=== PATIENT | male | born 1950 | race Caucasian/White ===

== ENCOUNTER 2018-04-26 10:49 | Emergency (ER) | payer OTHER, SELFPAY ==
[2018-04-26 10:50] VITALS: BP 122/63; PULSE 59; RESP 21; TEMP 36.5; O2SAT 100; BMI 24.4
--- NOTE | 2018-04-26 10:56 | EKG12_ITS ---
Test Reason : HYPOTENSION Blood Pressure : / mmHG Vent. Rate : 064 BPM Atrial Rate : 064 BPM P-R Int : 150 ms QRS Dur : 080 ms QT Int : 398 ms P-R-T Axes : 058 067 056 degrees QTc Int : 410 ms Normal sinus rhythm with sinus arrhythmia Normal ECG Confirmed by CARMITA LUNDBERG, SHILPA ([id number]), movie editor MYCHAL IZQUIERDO ([id number]) on 05/02/2018 9:58:09 AM Referred By: SUZANNE Confirmed By:SHILPA VIZCARRA MD
--- NOTE | 2018-04-26 10:57 | ED.VISSUMM ---
- ER Visit Summary Date of Service: 04/26/18 Chief Complaint: Low blood pressure and heart rate History of Present Illness: The patient is a 67 M who presents to the emergency department from outpatient surgery center. The patient had cataract surgery today. He states he had not eaten anything this morning. His eyes were dilated and he was given Versed and a twilight sedation. When the procedure was finished, the patient's heart rate dropped into the 40s. He also had low blood pressure. He states that he did feel mildly dizzy, but now he states that he feels back to normal. He is on no antihypertensives. His only medical history is of asthma. He denies any chest pain or trouble breathing. He denies any other systemic symptoms. Physical Examination: Vital signs reviewed General: Well-nourished, well-developed Head: Normocephalic, atraumatic Eyes: Pupils equal and reactive, extraocular muscles intact Neck, supple, no lymphadenopathy Heart: Regular rate and rhythm Respiratory: No distress, clear bilaterally Abdomen: Soft, nontender, nondistended, no peritoneal signs Back: Nontender Extremities: Nontender, no edema, no cords Skin: Normal color no rash Neuro: Alert and oriented, no focal or lateralizing deficits Test Results: [] Emergency Department Course and Treatment: The patient was hypotensive and bradycardic at the surgery center. My suspicion is that this was a vagal reaction or reaction to his medication. On arrival, he has normal blood pressure and a normal heart rate. EKG shows sinus rhythm without ischemic change. There is a normal axis and intervals. Patient was given fluids labs were obtained. These were unremarkable. He was observed for 2 hours and had no recurrence of his symptoms. He ambulated through the emergency department without symptoms. I do feel that this is likely secondary to his surgical procedure. I do not see a dangerous process. He had no chest pain or shortness of breath. At this time, I do feel it is safe for outpatient therapy. He was counseled on concerning symptoms and reasons to return. He will be discharged home. Treatment Plan: [] Disposition: Discharge Impression: 1. Medication effect This note was generated with [employer] software. It may contain incorrect words, spelling, and punctuation that were not noted in review of the chart prior to signing ED Disposition - Plan for ED Patient: Disposition: Home or Assisted Living Instructions: ED Hypotension Orthostatic Referrals: Kavita Rivas MD [Primary Care Provider] -
--- NOTE | 2018-04-26 11:01 | NURSING ---
NO OLD EKGS
[2018-04-26 11:13] LABS: Absolute Lymphocyte Count 1.23 X10^3/ul (0.83-4.51); Absolute Neutrophil Count 4.3 X10^3/uL (2.0-7.7); Basophil# 0.04 X10^3/uL; Basophil% 0.6 % (0-1); Eosinophil# 0.22 X10^3/uL; Eosinophils% 3.4 % (0-5); Hematocrit 41.6 % (40-54); Hemoglobin 14.6 g/dl (13.0-16.5); Lymphocyte # 1.23 X10^3/ul (4.0); Lymphocyte % 19.2 % (19-41); Mean Corp Hgb Conc 35.1 g/gl (32-36); Mean Corpuscular Hgb 29.5 pg (27.0-32.0); Mean Platelet Vol. 9.5 fl (6.2-12.0); Monocyte# 0.61 X10^3/uL; Monocyte% 9.5 % (0-10); Neutrophil # 4.27 X10^3/uL (2.7-7.7); Neutrophil % 66.7 % (47-70); Platelet Count 141 K/mm3 (150-450); RBC Distribution Width CV 13.6 % (11.6-14.6); RBC Distribution Width SD 41.2 fl (35.1-43.9); Red Blood Count 4.95 M/mm3 (4.6-6.2); White Blood Count 6.4 K/mm3 (4.4-11.0)
[2018-04-26 11:14] LABS: POSITIVE COUNT NO; POSITIVE DIFFERENTIAL NO; POSITIVE MORPHOLOGY NO
[2018-04-26 11:25] LABS: Anion Gap 3 (5-15); BUN 16 mg/dL (7-18); BUN/Creat Ratio 17.1 RATIO (10-20); Calcium,Total 8.6 mg/dL (8.5-10.1); Chloride 111 mmol/L (98-107); Creatinine, Serum 0.94 mg/dL (0.70-1.30); EST Glomerular Filtration Rate 86 mL/min (>60); Est Glom Filt Rate - Afr Amer 104 mL/min (>60); Estimated Creatinine Clearance 73.25 ml/min; Glucose 102 mg/dL (74-106); Potassium 4.8 mmol/L (3.5-5.1); Sodium Level 141 mmol/L (136-145)
[2018-04-26] MEDS: 0.9% Normal Saline 1,000 ML 1000 ML IV (11:50)
[2018-04-26 12:49] VITALS: BP 131/70; PULSE 81; RESP 18; O2SAT 98
== END 2018-04-26 13:17 | disposition home or self-care (01) ==
PROVIDERS: Emergency Provider Emergency Medicine; Family Provider Family Medicine; PCP Family Medicine
DX: I95.2 Hypotension due to drugs (principal); R00.1 Bradycardia, unspecified; T42.4X5A Adverse effect of benzodiazepines, initial encounter; Y92.530 Ambulatory surgery center as the place of occurrence of the external cause; J45.909 Unspecified asthma, uncomplicated
CPT/HCPCS: 80048; 85025; 93005; 96360; 99285; J7030; A4216

== ENCOUNTER → 2018-11-09 12:39 | Outpatient (CLI) | payer OTHER, SELFPAY ==
--- NOTE | 2018-11-09 12:44 | RAD_ITS ---
STUDY: SWALLOWING STUDY REASON FOR EXAM: Male, 68 years old. Dysphagia TECHNIQUE: The examination was performed with Speech Pathology in attendance. Under fluoroscopic observation, the patient ingested thin barium, thick barium, barium pudding, and barium coated cracker. FLUOROSCOPY TIME: 2:01 minutes/seconds RADIOLOGIST INVOLVEMENT: Radiologist was present and providing direct supervision. COMPARISON: None. FINDINGS: The following was observed during swallowing of the various mixtures of barium: Thin Barium: There was no evidence of aspiration or laryngeal penetration. Thick Barium: There was no evidence of aspiration or laryngeal penetration. Barium Pudding: There was no evidence of aspiration or laryngeal penetration. Barium Coated Cracker: There was no evidence of aspiration or laryngeal penetration, but there is delay in completion of oropharyngeal transfer. RAD/Swallowing Function w/Video IMPRESSION: Delay in completion of the oropharyngeal transfer for the barium coated cracker. Otherwise normal tailored barium swallow study. No evidence of increased risk for aspiration. The swallow study findings were discussed with the patient by the speech pathologist at the conclusion of the examination. Please see speech pathology report for more information and recommendations. Electronically Signed: Deuce Colby MD at 8:17 EDT Tel [phone], Service support ,
--- NOTE | 2018-11-09 13:42 | SP.MBSS_ITS ---
PRIMARY / SECONDARY DIAGNOSIS: dysphagia (R13.10) REFERRING PHYSICIAN: Dr. Kavita Rivas CURRENT DIET: Regular Textures/Thin Liquids DENTITION: Natural Teeth MENTAL STATUS: WFL RESPIRATORY STATUS: O2 via room air PREVIOUS MODIFIED BARIUM SWALLOW STUDY: N/A REASON FOR REFERRAL: Difficulty chewing dry food such as meat and breads MEDICAL HISTORY: History of asthma, otherwise no remarkable medical history available in patients chart. STUDY FINDINGS: Patient participated in a Modified Barium Swallow (MBS) study on 11/09/2018. Dr. Colby was the radiologist present for this evaluation. This study was recorded in the lateral view and images were sent to PACs for storage. The following consistencies were presented to this patient for analysis of oropharyngeal swallow function: thin liquid, nectar thick liquid, pudding, and a regular textured, Zaria Doone cookie. Results of the MBS are as follows: PENETRATION / ASPIRATION SCALE (SAWYER): 1 = does not enter airway 2 = enters airway/above vocal folds/ejected 3 = enters airway/above vocal folds/not ejected 4 = enters airway/contacts vocal folds/ejected 5 = enters airway/contacts vocal folds/not ejected 6 = enters airway/below vocal folds/ejected 7 = enters airway/below vocal folds/not ejected despite effort 8 = enters airway/below vocal folds/no effort PENETRATION / ASPIRATION SCALE (SCORE): 1) Thin liquid via teaspoon: 1 2) Thin liquid via teaspoon: 1 3) Thin liquid via small single sip from cup: 1 4) Thin liquid via large single sip from cup: image not captured due to technical error 5) Thin liquid via sequential sips from cup: 2 *trace penetration that was ejected on sequential swallow 6) New Site thick liquid via single sip from cup: 1 7) Puddin *three swallows taken to clear 8) Cookie: 1 *residuals requiring double swallow for each trial of cookie 9) Cookie: 1 10) Thin liquid via sequential sips from straw: 1 IMPRESSION: mild oropharyngeal dysphagia (R13.12) ORAL PHASE CHARACTERIZED BY: LABIAL SEAL: no labial escape TONGUE CONTROL DURING BOLUS MANIPULATION: cohesive bolus between tongue to palatal seal BOLUS PREPARATION / MASTICATION: slow prolonged chewing/mashing with complete recollection BOLUS TRANSPORT / LINGUAL MOTION: brisk tongue motion ORAL RESIDUE: residue collection on oral structures PHARYNGEAL PHASE CHARACTERIZED BY: INITIATION OF PHARYNGEAL SWALLOW: bolus head in valleculae at first hyoid excursion with solid textures ( *bolus head at posterior angle of ramus at first hyoid excursion with thin liquids) SOFT PALATE ELEVATION: no bolus between soft palate and pharyngeal wall LARYNGEAL ELEVATION: complete superior movement of thyroid cartilage with complete approximation of arytenoids cartilage to epiglottic petiole ANTERIOR HYOID EXCURSION: partial anterior movement EPIGLOTTIC MOVEMENT: complete epiglottic inversion LARYNGEAL VESTIBULE CLOSURE AT HEIGHT OF SWALLOW: complete laryngeal vestibule closure with no air/contrast in laryngeal vestibule PHARYNGEAL STRIPPING WAVE: pharyngeal stripping wave present / complete PHARYNGOESOPHAGEAL SEGMENT OPENING: partial distension and partial duration; partial obstruction of flow TONGUE BASE RETRACTION: narrow column of contrast between tongue base and posterior pharyngeal wall PHARYNGEAL RESIDUE: collection of residue within or on pharyngeal structures ESOPHAGEAL PHASE CHARACTERIZED BY: ESOPHAGEAL BOLUS CLEARANCE IN THE UPRIGHT POSITION: could not view INTERPRETATION OF RESULTS: Patient presents with mild oropharyngeal dysphagia likely secondary to chronic dry mouth making chewing and oral clearance upon initial swallow difficult. Oral phase primarily marked by slowed mastication (chewing) with Zaria Doone shortbread cookie with moderate oral residue following initial swallow. Residue spilled to vallecula before being cued to take a double swallow with complete clearance. Given this presentation, pt is at high risk for choking/aspiration of solid textures with build up of residue unless cleared prior to taking another bite. Pharyngeal phase primarily marked by trace pharyngeal residue with solid textures including above PES. Diminished hyoid excursion noted although adequate appearing laryngeal elevation and laryngeal vestibule closure/pressure. No aspiration of thin or nectar thick liquids present. Trace penetration with thin liquids on sequential swallows that was ejected. RECOMMENDATIONS: DIET TEXTURE RECOMMENDATIONS: Will recommend a mechanical soft textured, thin liquid diet. COMPENSATORY STRATEGIES RECOMMENDED: Will recommend decreased bolus size, slow rate of intake, double swallow with every bite, alternate bites with sips, and seated upright at 90 degrees during PO intake. Results and recommendations were discussed with the patient immediately following MBS completion. Patient able to comprehend and express recommended intake precautions and strategies detailed above with sufficient detail to suggest high likelihood of compliance. Provided brief overview of signs and symptoms of aspiration, with recommendations for the patient to further discuss symptoms with PCP. No further skilled speech-language services warranted at this time targeting dysphagia. IMAGE COUNT: [id number] Mary Ann Vaughn M.A., [facility] Speech Language Pathologist [facility] [address] [place] [address] [email or web address] [phone]
== END ==
PROVIDERS: Family Provider Family Medicine; PCP Family Medicine; Referring Provider Family Medicine; Visit Provider Family Medicine
DX: R13.10 Dysphagia, unspecified (principal)
CPT/HCPCS: 74230; 92611

== ENCOUNTER → 2019-05-16 10:49 | Outpatient (CLI) | payer OTHER, SELFPAY ==
[2019-05-16 12:33] LABS: Cholesterol 153 mg/dL (200); High Density Lipoprotein 36 mg/dL; PSA,Total - Annual Screen 1.83 ng/mL (0.00-4.00); Triglycerides 123 mg/dL; Very Low Density Lipoprotein 25 mg/dL (5-40)
== END ==
PROVIDERS: PCP Family Medicine; Referring Provider Family Medicine; Visit Provider Family Medicine
DX: Z00.00 Encounter for general adult medical examination without abnormal findings (principal)
CPT/HCPCS: 36415; 80061; 84153; G0103

== ENCOUNTER 2019-05-31 07:43 | Day surgery (SDC) | payer OTHER, SELFPAY ==
[2019-05-22 08:01] VITALS: BMI 24.4
--- NOTE | 2019-05-31 07:48 | EKG12_ITS ---
Test Reason : PRE OP Blood Pressure : / mmHG Vent. Rate : 056 BPM Atrial Rate : 056 BPM P-R Int : 150 ms QRS Dur : 092 ms QT Int : 414 ms P-R-T Axes : 063 067 063 degrees QTc Int : 399 ms Sinus bradycardia Otherwise normal ECG When compared with ECG of 26-APR-2018 11:01, No significant change was found Confirmed by FATOU RESENDEZ ([id number]), image editor SUSI HOLBROOK ([id number]) on 06/01/2019 7:25:52 AM Referred By: Fatou Damian Confirmed By:FATOU RESENDEZ
[2019-05-31 08:07] VITALS: BP 148/61; PULSE 59; RESP 16; TEMP 35.9; O2SAT 99; BMI 24.0
[2019-05-31] MEDS: Lactated Ringers 1,000 ML 100 ML IV (08:13)
[2019-05-31] MEDS: Cefazolin 2 GM in 0.9% Normal Saline 100 ML IV (10:36)
--- NOTE | 2019-05-31 10:45 | HP.PCM_ITS ---
History and Physical Date of Admission: 05/31/19 [facility] [address] [place], [place] [id number] OFFICE VISIT Date of Service: 05/22/19 MR#: [id number] Acct: [id number] Name: PRIMO IZQUIERDO Rep #: [id number] : 1950 Provider: Yuval escoto MD Age/Sex: 68/M Location: [facility] Status: Signed Intake Vital Signs 05/22/19 BMI 24.4 05/22/19 Height 5 ft 8 in 05/22/19 Weight: 155 lb 05/22/19 BMI 23.6 05/22/19 BP 138/75 H 05/22/19 Blood Pressure Location Rt brachial 05/22/19 Position Sitting 05/22/19 Respiration 16 Intake Visit Reasons: Hernia Online Merchandising Coordinator Required: No Is patient in pain?: No Allergies Sulfa (Sulfonamide Antibiotics) Adverse Reaction (Verified 05/22/19 08:01) Upset Stomach sulfamethoxazole [From Bactrim] Adverse Reaction (Verified 05/22/19 08:01) Upset Stomach trimethoprim [From Bactrim] Adverse Reaction (Verified 05/22/19 08:01) Upset Stomach Medications Albuterol IH (ProAir) [Proair Hfa (SP)Vent Pts] 2 puff INHALATION Q4H PRN PRN 04/26/18 [History Confirmed 04/26/18] Budesonide [Pulmicort] 0.25 mg IH DAILY 04/26/18 [History Confirmed 04/26/18] Fluticasone Propionate [Flonase Allergy Relief] 9.9 ml NS DAILY 04/26/18 [History Confirmed 04/26/18] Guaifenesin [Mucus Relief Chest] 400 mg PO DAILY 04/26/18 [History Confirmed 04/26/18] Ipratropium [Atrovent] 0.5 mg INHALATION DAILY 04/26/18 [History Confirmed 04/26/18] mometasone 100 mcg/actuation HFA aerosol inhaler 1 puff INHALATION BID 05/22/19 [History Confirmed 05/22/19] PFSH Medical History Asthma (Acute) GERD (gastroesophageal reflux disease) (Acute) Surgical History S/P cataract extraction (Acute) Family History Father Asthma Social History (Updated 05/22/19 @ 08:[address] Yuval Damian MD) Smoking Status: Never smoker alcohol intake: never HPI HPI HPI: PRIMO IZQUIERDO, is a 68 M who presents to the office today for HPI HPI HPI: PRIMO IZQUIERDO, is a 68 M who presents to the office today for Evaluation of a right inguinal hernia. Patient states about 6 months ago he was lifting up a pallet at his home above his chest area when he felt a pain in his right groin area he developed a bulge in that area approximately a week after that happened. The bulge is been persistent gradually increasing in size. He has had no change in his bowel or bladder habits. Was seen by his primary care physician diagnosed him with a right inguinal hernia and presents him today for evaluation and treatment. ROS General General: Yes fatigue; no weight change, appetite, colon cancer, breast cancer or weakness HEENT HEENT: Yes difficulty swallowing and eye surgery; no eye injury, swollen glands or hoarseness Endo Endocrine: No thyroid disease, diabetes mellitus, thyroid cancer, Hair loss, heat intolerance or cold intolerance Skin Skin: No rash or changing moles Breast Breast: No left breast lump, right breast lump, nipple discharge, breast pain, abnormal mammogram, abnormal US or breast enlargement Musc Musculoskeletal: No back problems, arthritis, rheumatoid arthritis, gout or joint pain Cardio Cardiovascular: No murmur, pacemaker, heart disease, atrial fibrillation, high blood pressure, heart attack, heart stent, palpitations, shortness of breat with exertion or chest pain Psych Psychiatric: No depression, anxiety or hearing voices Resp Respiratory: Yes shortness of breath, No sleep apnea, Yes cough, No COPD, Yes asthma, No emphysema, No wheezing Gastro Gastrointestinal: No abdominal pain, No nausea or vomiting, No diarrhea, No constipation, No blood in stool, No acid reflux, No hemorrhoids, No ulcers, No gallbladder problem, No black,tarry stools Jd Hematologic: No blood thinners, No blood disorders, No bleeding, No anemia, No blood clots Neuro Neurologic: No system reviewed and no additional complaints, except as docu, No as per HPI, No abnormal walking, No abnormal hearing, No abnormal movements, No abnormal speech, No behavioral changes, No burning sensations, No confusion, No seizure-like activity, No unsteadiness, No dizziness, No localized weakness, No frequent falls, No headache(s), No lack of coordination, No loss of vision, No memory loss, No numbness, No other visual disturbances, No radiating pain, No restless legs, No sensory deficit, No fainting, No tingling, No tremor(s), No weakness, No other Exam Const General: no acute distress, well developed, well hydrated Orientation: oriented to person, oriented to place, oriented to time [facility] Head: normocephalic, atraumatic Ears: external ears normal Mouth: moist mucous membranes Eyes Sclera: sclerae normal Pupils: normal by confrontation Neck Neck: no lymphadenopathy noted Neck mass: No Thyroid: thyroid normal, symmetrical Chest Chest palpation & inspection: normal inspection of the chest Breast Palpation: No nipple discharge Resp Effort & Inspection: normal respiratory effort Auscultation: clear to auscultation bilaterally Percussion: percussion normal Cardio Rate: regular rate Rhythm: regular rhythm Heart Sounds: no murmurs GI Palpation: soft, no hepatosplenomegaly, no masses, tender Rectal Exam: other Other: Reducible right inguinal hernia is palpated. No hernia on the left side is identified. Rectal exam deferred. Extrem General: normal to inspection, no clubbing, cyanosis or edema Assessment & Plan 1. Hernia K46.9 2. Right inguinal hernia K40.90 Plan My plan is to perform a Laparoscopic right inguinal hernia repair with mesh. The planned surgical procedure was discussed extensively with the patient. The risks, benefits, anticipated outcomes and possible complication were mentioned. The patient understands that all hernia repair surgery has a chance of recurrence and/or chronic post-operative pain. My staff has also explained the procedure in understandable terms and the patient was given the option to take printed material concerning the planned procedure. The patient had the opportunity to ask questions concerning the planned procedure. The patient freely consents to the planned procedure. Coding Level of Care Code Off vis,new,level 3 Diagnoses Hernia K46.9 Right inguinal hernia K40.90 05/22/19 0820 <Electronically signed by Yuval conde MD> Date _ Yuval Horton Signature: Date (if applicable) CC: Kavita Rivas MD ~ I have re-examined the patient. There are no clinical changes since date of e boyd.
--- NOTE | 2019-05-31 10:47 | PCM.OPRPT ---
Problem List (1) Right inguinal hernia Status: Acute Report of Operation Date of Procedure: 05/31/19 Pre-Operative Diagnosis: Right inguinal hernia Post-Operative Diagnosis: Same Surgery/Procedure Performed:: Laparoscopic right inguinal hernia repair Type of Anesthesia:: General Anesthesiologist: Hermes Mcallister Estimated Blood Loss (mL): < 25 cc Fluids Replaced: 1000 cc LR Description of Procedure: Patient was brought into the operating room. Placed in the supine position. Under excellent general trach intubation the abdomen was sterilely prepped and draped in usual fashion. Local was injected umbilically. Incision was made. Dissection was carried down to the fascia. The fascia is grasped with a Dupont. Varies needle placed inside the abdomen. The abdomen was insufflated 15 torr. A 10/12 trocar was placed difficulty. It was flank by 2 #5 trochars both placed under direct visualization. Patient was placed in the head down rotated to the left. Scored the peritoneum on the right. I dissected down to Avinash's ligament. I dissected towards the indirect inguinal hernia and dissected free from the cord and vessel structures. I dissected further laterally. I fashioned a medium 3D max mesh into the wound. I tacked it with a pro-tacker to Avinash's ligament I tacked it superiorly and laterally with sparing tacks. Cover the defect completely. I reperitonealized area with a pro-tacker covering the mesh completely. I inspected the left side no hernias were identified. Remove the trochars under direct visualization good mistakes was noted. Closed the fascia the umbilical port with a [id number] stitch of 0 Vicryl. Skin incisions were closed subcuticular stitches of 4-0 Monocryl. Under direct visualization I did do an ileal inguinal nerve block on the right side. - Admit VTE Documentation VTE Present on Admission: No VTE Mechan Device Prophylaxis: SCD's VTE Pharm Prophylaxis ordered?: No Reason prophylaxis not ordered:: Treatment Not Indicated
--- NOTE | 2019-05-31 10:48 | PCM.DC.HER ---
Discharge Diet: Light diet - advance as tolerated Discharge Activity: Return to Normal Activity, May Drive - when you are no longer taking narcotic pain medications., May Shower - with the bandage in place 1-2 days after surgery. Lifting Restrictions: 20 pounds for 8 weeks. Additional Activity Instructions:: Climbing stairs is fine, walking is encouraged. Sitting in bed may be uncomfortable. Sitting up using your lateral muscles (sitting up sideways) is usually more comfortable. Do not drive, work heavy equipment of sign legal documents for 24 hours. If your hernia repair was an ingunial repair, you may have scrotal swelling, an ice pack and/or athletic support can provide more comfort. Pain medications may cause nausea, you should typically eat light foods as you take your pain medications. Pain medications may also cause constipation. If you have difficulty with this, discuss with your doctor. Call your doctor if your incision/area has: Continuous Slow Oozing, Sudden Increased Bleeding, Increased Pain/ Swelling, Increased Redness, Foul Smelling Discharge Call your doctor if you observe: Fever of 101 or Higher Suture Line Care: Avoid Pulling/Pushing, Avoid Pinching/Bending Additional Dressing/Incision Instructions:: Leave the operative bandage on for 2-3 days. When you remove the bandage, leave the steri-strips on place until your follow up appointment or they fall off. Allergies/Adverse Reactions: Allergies Sulfa (Sulfonamide Antibiotics) Adverse Reaction (Verified 05/31/19 08:03) Upset Stomach sulfamethoxazole [From Bactrim] Adverse Reaction (Verified 05/31/19 08:03) Upset Stomach trimethoprim [From Bactrim] Adverse Reaction (Verified 05/31/19 08:03) Upset Stomach Medications to take at Discharge Budesonide [Pulmicort] 0.25 mg IH DAILY 04/26/18 Fluticasone Propionate [Flonase Allergy Relief] 9.9 ml NS DAILY 04/26/18 Guaifenesin [Mucus Relief Chest] 400 mg PO DAILY 04/26/18 Ipratropium [Atrovent] 0.5 mg INHALATION DAILY 04/26/18 Albuterol IH (ProAir) [Proair Hfa (SP)Vent Pts] 1 - 2 puff INHALATION Q6H PRN PRN 05/26/19 Famotidine [Acid Controller] 20 mg PO PRN PRN 05/26/19 Mometasone Furoate [Asmanex 220 mcg Twisthaler] 220 mcg INHALATION BID 05/26/19 Oxycodone HCl/Acetaminophen [Percocet 5/325] 1 - 2 tablet PO Q4H PRN PRN 6 Days #30 tablet 05/31/19 The following prescriptions were given: Oxycodone HCl/Acetaminophen [Percocet 5/325] 1 - 2 tablet PO Q4H PRN PRN 6 Days #30 tablet PRN Reason: Pain Transmission Status: Sent to [id number] Primary Care Physician: Kavita Rivas MD [Primary Care Provider] - Test Results: Test results from this visit will be discussed in further detail at your follow-up appointment, if applicable. Please Follow Up With: Lorenza Montoya PA-C - [phone] When: Plan to have a follow up appointment in 7 days. Call to schedule.
[2019-05-31] MEDS: Bupivacaine Mpf 0.5% 30 ML VIAL (10:53)
[2019-05-31 11:29] VITALS: BP 126/65; BP 148/61; PULSE 58; RESP 16; TEMP 37.1; O2SAT 96
[2019-05-31 11:45] VITALS: BP 120/64; BP 148/61; PULSE 68; RESP 16; O2SAT 96
[2019-05-31 11:59] VITALS: BP 132/67; BP 148/61; PULSE 57; RESP 16; TEMP 36.8; O2SAT 98
[2019-05-31 13:18] VITALS: BP 138/83; BP 148/61; PULSE 61; RESP 16; TEMP 36.9; O2SAT 98
== END 2019-05-31 13:24 | disposition home or self-care (01) ==
LOC: SDC 07:44 → AC 07:45
PROVIDERS: PCP Family Medicine; Referring Provider Surgery; Visit Provider Surgery
PROC: (CPT 49650; principal; 2019-05-31 10:10)
DX: K40.90 Unilateral inguinal hernia, without obstruction or gangrene, not specified as recurrent (principal); K21.9 Gastro-esophageal reflux disease without esophagitis; J45.909 Unspecified asthma, uncomplicated
CPT/HCPCS: 00840; 49650; 93005; J7120; C1781; J2405

== ENCOUNTER 2020-10-24 08:30 | Outpatient (RCR) | payer MEDICARE, SELFPAY ==
--- NOTE | 2020-10-02 10:57 | HP.OTEVAL_ITS ---
Patient's Visit Information PRIMO IZQUIERDO is a 70 year old M, referred to Occupational Therapy by Dr. Kavita Rivas MD, with a diagnosis of R index finger crush injury. Date of Evaluation: 10/02/20 Occupational Therapist: Diandra Vance - Subjective Pt presents with . In July (possibly the ?) pt crushed finger with a fisher line lapel stitcher. Pt went to ER where he had 8-12 stiches, x-rays were negative for fx and no tendons were involved in injury. Pt states he has been trying to do more work with his finger since the injury. Pt had a follow up on 09/30/20 who referred to OT because pt is still having difficulty. 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 Pt is Right hand dominant. - Pain R index finger 0 Pain Intensity Range: 0, 6 - Objective pt has raised/thickening of scar from injury and removed stitches; reddened areas on dorsal side from scar healing - ROM PIP: R D2: 88 /-18 DIP: R D2: 50 /-15 ROM Comments: Pt states pain when trying to force extension of R index finger; L hand WFL making tight composite fist. 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[employer]: R 76# L 83# Lateral Pinch: R12# L 16# Tripod Pinch: R 10# L16# - Edema DIP: D2 : R6.0 L 5.3 - Sensation Sensation Comments: Pt states the tip of the index finger doesn't feel the same compared to L hand - Nine Hole Peg Right: 20.63 sec Left: 19.3 sec - In-Hand Manipulation Comments: compensation of in hand manipulation skills w/ R D3 - Goals Goal:100% adherence to protocol: Yes Goal:Daily scar massage when approriate: Yes Goal:ROM equal to unaffected hand: Yes Goal:Setter [employer]/Pinch strength at least 75% of unaffected hand: Yes Comment: tripod pinch Goal:PIP Circumferences equal to unaffected hand: Yes Goal:Full use of affected hand in daily activities including: Yes - Rehabilitation General Assessment: Pt presents to OT s/p crush injury with 8-12 stiches at time of injury- pt is about 8 weeks s/p and is presenting with slight deficit in strength, range of motion at the DIP and PIP joint and difficulty w/ functional use. Pt is having some pain when the finger gets suddenly bumped but reports the sensitivity has gotten better over the last couple of weeks. Rehabilitation Potential: Good - Anticipated Interventions A/AAROM/PROM, Strengthening, Edema Control, Scar Care, Massage, Desensitization, Modalities, Fine Motor Coord/Héctor, Manual Lymph Drainage, Home Program - Visit Plan Frequency: 2x /Week Duration: 4 Weeks General Plan: Pt would benefit from cont. therapy services in order to address skill deficits through A/PROM, FM coordination/strengthening, PRE, scar management strategies, and sensory strategies. TEXT: Thank you for the opportunity to evaluate your patient. For Medicare and Medicare HMO plans, please review the plan of care and approve it. It will need to be FAXED BACK to us at [phone] for Medicare purposes. Please let me know if there are questions or concerns regarding this plan of care. Physician Signature: Date:
--- NOTE | 2020-10-24 09:06 | HP.OTDCSUM ---
It has been my pleasure to treat PRIMO IZQUIERDO under orders from Dr. Kavita Rivas MD, for the diagnosis of R index finger crush injury for a total of 7 visit(s). Please see the following information for a summary of their discharge status. % Improvement: 90 Objective/Function: right roping tender strength 80#. right lateral roping tender 10#. right tripod pinch 12#. right IF PIP -20/90. right IF DIP -15/45. 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 Pt is ind. with ADLs and IADLs and has returned to using hand with home mtg. tasks. pt d/c with [facility] pt agree with POC. If there are questions or concerns regarding this patient's occupational therapy, please fell free to call me at [phone]. Thank you for the referral of this patient. Sincerely, Carissa Sparrow, OTR/L, CHT
== END 2020-10-24 19:00 | disposition home or self-care (01) ==
LOC: OT 08:30
PROVIDERS: PCP Family Medicine; Referring Provider Family Medicine; Visit Provider Family Medicine
DX: S67.190D Crushing injury of right index finger, subsequent encounter (principal)
CPT/HCPCS: 97035; 97110; 97140; 97165; 97530

== ENCOUNTER → 2023-02-22 | Outpatient (CLI) | payer MEDICARE, SELFPAY ==
[2023-02-22 13:41] LABS: PSA,Total - Annual Screen 1.94 ng/mL (0.00-4.00)
== END | disposition home or self-care (01) ==
LOC: MFPLAB 10:11
PROVIDERS: PCP Family Medicine; Visit Provider Family Medicine
DX: Z12.5 Encounter for screening for malignant neoplasm of prostate (principal)
CPT/HCPCS: 36415; 84153; G0103

== ENCOUNTER → 2023-12-24 | Outpatient (CLI) | payer MEDICARE, SELFPAY ==
[2023-12-24 15:55] LABS: Cholesterol 163 mg/dL (200); High Density Lipoprotein 38 mg/dL; Triglycerides 118 mg/dL; Very Low Density Lipoprotein 24 mg/dL (5-40)
== END | disposition home or self-care (01) ==
LOC: MFPLAB 11:44
PROVIDERS: PCP Family Medicine; Visit Provider Family Medicine
DX: E78.2 Mixed hyperlipidemia (principal); Z12.5 Encounter for screening for malignant neoplasm of prostate
CPT/HCPCS: 36415; 80061; 84153

== ENCOUNTER → 2025-02-22 | Outpatient (CLI) | payer MEDICARE, SELFPAY ==
[2025-02-22 13:25] LABS: AST(SGOT) 25 U/L (<=37); Alanine Aminotransfer ALT/SGPT 16 U/L (<=46); Albumin, Serum 4.4 g/dL (3.4-4.8); Alkaline Phosphatase 92 U/L (40-129); Anion Gap 10 (5-15); BUN 19 mg/dL (4-19); BUN/Creat Ratio 16.7 RATIO (10-20); Calcium,Total 9.5 mg/dL (7.6-11.0); Carbon Dioxide 24.2 mmol/L (21.0-32.0); Chloride 107 mmol/L (98-108); Globulin 2.9 g/dL (2.2-4.2); Glucose 108 mg/dL (70-99); PSA,Total - Annual Screen 2.08 ng/mL (0.02-4.00); Potassium 4.8 mmol/L (3.3-5.1)
[2025-02-22 13:53] LABS: Cholesterol 183 mg/dL (<=200); Low Density Lipoprotein Calc. 126 mg/dL; Triglycerides 105 mg/dL; Very Low Density Lipoprotein 21 mg/dL (5-40); cholesterol:hdl ratio screen 4.87
== END | disposition home or self-care (01) ==
LOC: MFPLAB 10:00
PROVIDERS: PCP Family Medicine
DX: Z00.00 Encounter for general adult medical examination without abnormal findings (principal); Z12.5 Encounter for screening for malignant neoplasm of prostate
CPT/HCPCS: 36415; 80053; 80061; 84153; G0103